=== PATIENT | female | born 1960 | race Caucasian/White ===

== ENCOUNTER 2020-01-08 08:59 | Outpatient (CLI) | payer OTHER, SELFPAY ==
--- NOTE | ~2020-01-08 | MM_ITS ---
EXAMINATION: MM screening [facility] BI w kaylyn HISTORY: Screening mammogram TECHNIQUE: Craniocaudal and mediolateral oblique 3-D tomosynthesis images were obtained and synthetic 2-D images were generated. CAD analysis was submitted and interpreted. COMPARISON: 01/02/2019, 12/26/2017, 10/03/1719 191 BREAST PARENCHYMAL COMPOSITION: There are scattered areas of fibroglandular density. FINDINGS: An asymmetry in the middle third of the left breast on the mediolateral oblique view has an appearance similar to prior mammograms, consistent with a benign finding. There is no evidence of chairez spicious mass, calcification, or architectural distortion to suggest malignancy in either breast. The re has been no suspicious interval change. IMPRESSION: 1. No mammographic evidence of malignancy. 2. Recommend routine screening mammography in one year. BI-RADS Category 2: Benign finding(s). Reviewed, dictated and finalized at location A.
== END 2020-01-08 09:00 | disposition home or self-care (01) ==
PROVIDERS: PCP Internal Medicine; Visit Provider Internal Medicine
DX: Z12.31 Encounter for screening mammogram for malignant neoplasm of breast (principal)
CPT/HCPCS: 77063; 77067

== ENCOUNTER 2020-04-15 09:44 | Outpatient (CLI) | payer OTHER, SELFPAY ==
--- NOTE | ~2020-04-15 | XR_ITS ---
XR chest 2V 04/15/2020 10:15 Indication: Cough and congestion. Fever. Procedure: 2 view chest Comparison: Comparison to multiple prior studies sequentially, with oldest reviewed study dated 04/13. Findings: There is patchy consolidation in the right midlung. There is left suprahilar infiltrates. H eart size upper normal. There are median sternotomy wires. No pleural effusion, edema or pneumothorax . Impression: 1: Focal consolidation right mid lung zone and left perihilar region, compatible with pneumonia. Reviewed, dictated and finalized at location B. ERPRESS SETTER Impression: 1: Focal consolidation right mid lung zone and left perihilar region, compatibl e with pneumonia.
[2020-04-15 10:13] LABS: Hematocrit 35.6 % (35.0-49.0); Hemoglobin 12.2 g/dL (12.0-15.0); Mean Corpuscular HGB Conc 34.3 g/dL (32.0-36.0); Mean Corpuscular Hemoglobin 33.5 pg (27.0-31.0); Mean Corpuscular Volume 97.8 fL (78.0-102.0); Mean Platelet Volume 10.2 fl (9.2-11.8); Platelet Count Result 90 K/mm3 (150-420); Red Blood Count 3.64 M/mm3 (4.20-5.40); Red Cell Distribution Width 13.6 % (11.6-14.4); White Blood Count 3.5 K/mm3 (4.8-10.8)
[2020-04-15 10:28] LABS: Influenza Control Valid (Valid)
[2020-04-15 11:26] LABS: Band Neutrophils Percent 1 % (0-6); Total Cells Counted 100
[2020-04-15 11:31] LABS: Eosinophils Absolute Manual 0.07 K/mm3 (0.02-0.5); Eosinophils Percent Manual 2 % (1-6); Lymphocytes Absolute Manual 0.56 K/mm3 (1.1-4.5); Lymphocytes Percent Manual 16 % (18-44); Monocytes Absolute Manual 0.17 K/mm3 (0.1-0.90); Monocytes Percent Manual 5 % (3-9); Neutrophils Absolute Manual 2.69 K/mm3 (1.7-7.2); Neutrophils Percent Manual 76 % (46-73)
[2020-04-15 11:32] LABS: Platelet Estimate Adequate (Adequate)
[2020-04-15 12:20] LABS: Alanine Aminotransferase 46 U/L (14-59); Albumin Level 3.3 g/dL (3.4-5.0); Alkaline Phosphatase 88 U/L (46-116); Anion Gap 9 mmol/L (8-16); Aspartate Amino Transferase 44 U/L (15-37); Bilirubin,Total 0.4 mg/dL (0.00-1.00); Blood Urea Nitrogen 10 mg/dL (7-18); Calcium 7.8 mg/dL (8.5-10.1); Carbon Dioxide 27 mmol/L (21-32); Chloride 90 mmol/L (98-108); Estimated Glomerular Filt Rate > 60; Glucose 120 mg/dL (70-99); Osmolality Calculated 262 mOsm/kg (285-295); Potassium 4.3 mmol/L (3.5-5.1); Sodium 126 mmol/L (136-145); Total Protein 5.9 g/dL (6.4-8.2)
== END 2020-04-15 09:45 | disposition home or self-care (01) ==
LOC: CHSLAB 09:47
PROVIDERS: PCP Internal Medicine; Visit Provider Internal Medicine
DX: R05 Cough (principal)
CPT/HCPCS: 71046; 80053; 85025; 87804

== ENCOUNTER 2020-04-25 09:40 | Outpatient (CLI) | payer OTHER, SELFPAY ==
--- NOTE | ~2020-04-25 | XR_ITS ---
XR chest 2V 04/25/2020 09:57 Indication: Pneumonia. Shortness of breath. Cough. Procedure: 2 view chest Comparison: Comparison to multiple prior studies sequentially, with oldest reviewed study dated 06/12. Findings: Mild cardiomegaly. There are median sternotomy wires. There is posterior basilar infiltrate s, best seen on the lateral view. No significant pleural effusion. No pneumothorax. Impression: 1: Posterior basilar infiltrates, atelectasis versus pneumonia. 2: Mild cardiomegaly. Reviewed, dictated and finalized at location A. MANAGER SPECIALIST Impression: 1: Posterior basilar infiltrates, atelectasis versus pneumonia. 2: Mild cardiomegaly.
== END 2020-04-25 09:41 | disposition home or self-care (01) ==
LOC: CHSIMG 09:42
PROVIDERS: PCP Internal Medicine; Visit Provider Internal Medicine
DX: J18.9 Pneumonia, unspecified organism (principal)
CPT/HCPCS: 71046

== ENCOUNTER 2020-05-12 12:05 | Outpatient (CLI) | payer OTHER, SELFPAY ==
--- NOTE | ~2020-05-12 | XR_ITS ---
EXAMINATION: XR chest 2V DATE: 05/12/2020 12:38 INDICATION: Cough and shortness of breath, pneumonia follow-up TECHNIQUE: PA and lateral views of the chest are obtained. COMPARISON: 04/25/2020 FINDINGS: Patchy bilateral airspace opacities persist but have improved. There is no pleural effusion or pneumothorax. Stable cardiomegaly is noted. There are changes of prior cardiac surgery. There is moderate thoracic spondylosis. IMPRESSION: 1. Persistent but improving bilateral airspace opacities, likely resolving pneumonia. 2. Stable cardiomegaly. Reviewed, dictated and finalized at location A. AGE STOKER IMPRESSION: 1. Persistent but improving bilateral airspace opacities, likely resolving pneu monia. 2. Stable cardiomegaly.
== END 2020-05-12 12:06 | disposition home or self-care (01) ==
LOC: CHSIMG 12:07
PROVIDERS: PCP Internal Medicine; Visit Provider Internal Medicine
DX: J18.9 Pneumonia, unspecified organism (principal)
CPT/HCPCS: 71046

== ENCOUNTER 2021-01-19 09:40 | Outpatient (CLI) | payer BC, SELFPAY | END 2021-01-19 09:41 | disposition home or self-care (01) | LOC: CHSCARD 09:44 | PROVIDERS: PCP Internal Medicine; Visit Provider Internal Medicine | DX: R06.00 Dyspnea, unspecified (principal) | CPT/HCPCS: 94060; 94726; 94729 ==

== ENCOUNTER 2021-02-10 12:08 | Outpatient (CLI) | payer BC, SELFPAY ==
--- NOTE | ~2021-02-10 | MM_ITS ---
EXAMINATION: MM screening [facility] BI w kaylyn HISTORY: Screening TECHNIQUE: Craniocaudal and mediolateral oblique 3-D tomosynthesis images were obtained and synthetic 2-D images were generated. CAD analysis was submitted and interpreted. COMPARISON: Comparison to multiple prior studies sequentially, with oldest reviewed study dated 10/02. BREAST PARENCHYMAL COMPOSITION: There are scattered areas of fibroglandular density. FINDINGS: There is no evidence of suspicious mass, calcification, or architectural distortion to sugg est malignancy in either breast. There has been no suspicious interval change. IMPRESSION: 1. No mammographic evidence of malignancy. 2. Recommend routine screening mammography in one year. BI-RADS Category 1: Negative Reviewed, dictated and finalized at location A.
== END 2021-02-10 12:09 | disposition home or self-care (01) ==
PROVIDERS: PCP Internal Medicine; Visit Provider Internal Medicine
DX: Z12.31 Encounter for screening mammogram for malignant neoplasm of breast (principal)
CPT/HCPCS: 77063; 77067

== ENCOUNTER 2021-05-29 16:14 | Outpatient (CLI) | payer BC, SELFPAY ==
--- NOTE | ~2021-05-29 | XR_ITS ---
EXAMINATION: XR chest 2V DATE: 05/29/2021 16:35 INDICATION: Cough. TECHNIQUE: Frontal and lateral views of the chest were obtained. COMPARISON: Chest 2 views 05/12/20 FINDINGS: The chest demonstrates clear lungs without pneumonia, pleural effusion, or pneumothorax. Th e heart size is normal. Median sternotomy wires are noted. IMPRESSION: 1. No acute cardiopulmonary disease. Reviewed, dictated and finalized at location A. ERY ATTENDANT
== END 2021-05-29 16:15 | disposition home or self-care (01) ==
LOC: CHSLAB 16:16
PROVIDERS: PCP Internal Medicine; Visit Provider Internal Medicine
DX: J44.1 Chronic obstructive pulmonary disease with (acute) exacerbation (principal)
CPT/HCPCS: 71046

== ENCOUNTER 2021-06-26 10:29 | Outpatient (CLI) | payer BC, SELFPAY ==
--- NOTE | ~2021-06-26 | XR_ITS ---
EXAMINATION: XR chest 2V DATE: 06/26/2021 10:53 INDICATION: Persistent cough after diagnosis of bronchitis 3 weeks ago. TECHNIQUE: Frontal and lateral views of the chest were obtained. COMPARISON: Chest 2 views 05/29/2021 FINDINGS: There is no pneumonia, pleural effusion, or pneumothorax. Cardiomegaly is noted. Median kevin rnotomy wires are noted. IMPRESSION: 1. Cardiomegaly. Reviewed, dictated and finalized at location A. ESSOR OF VIOLIN IMPRESSION: 1. Cardiomegaly.
== END 2021-06-26 10:30 | disposition home or self-care (01) ==
LOC: CHSIMG 10:30
PROVIDERS: PCP Internal Medicine; Visit Provider Internal Medicine
DX: R05.9 Cough, unspecified (principal)
CPT/HCPCS: 71046

== ENCOUNTER 2022-03-29 07:43 | Outpatient (CLI) | payer BC, SELFPAY ==
--- NOTE | ~2022-03-29 | MM_ITS ---
EXAMINATION: MM screening [facility] BI w kay[facility] HISTORY: Screening TECHNIQUE: Craniocaudal and mediolateral oblique 3-D tomosynthesis images were obtained and synthetic 2-D images were generated. CAD analysis was submitted and interpreted. COMPARISON: Comparison to multiple prior studies sequentially, with oldest reviewed study dated 07/21. BREAST PARENCHYMAL COMPOSITION: There are scattered areas of fibroglandular density. FINDINGS: There is no evidence of suspicious mass, calcification, or architectural distortion to sugg est malignancy in either breast. There has been no suspicious interval change. IMPRESSION: 1. No mammographic evidence of malignancy. 2. Recommend routine screening mammography in one year. BI-RADS Category 1: Negative Reviewed, dictated and finalized at location A. OLL ACCOUNTING SPECIALIST
== END 2022-03-29 07:44 | disposition home or self-care (01) ==
LOC: CHSIMG 07:46
PROVIDERS: PCP Internal Medicine; Visit Provider Internal Medicine
DX: Z12.31 Encounter for screening mammogram for malignant neoplasm of breast (principal)
CPT/HCPCS: 77063; 77067

== ENCOUNTER 2023-06-14 11:44 | Outpatient (CLI) | payer BC, SELFPAY ==
--- NOTE | ~2023-06-14 | MM_ITS ---
EXAMINATION: MM screening [facility] BI w kaylyn HISTORY: Screening TECHNIQUE: Craniocaudal and mediolateral oblique 3-D tomosynthesis images were obtained and synthetic 2-D images were generated. CAD analysis was submitted and interpreted. COMPARISON: Comparison to multiple prior studies sequentially, with oldest reviewed study dated 10/02. BREAST PARENCHYMAL COMPOSITION: Not dense: There are scattered areas of fibroglandular density. FINDINGS: There is no evidence of suspicious mass, calcification, or architectural distortion to sugg est malignancy in either breast. There has been no suspicious interval change. IMPRESSION: 1. No mammographic evidence of malignancy. 2. Recommend routine screening mammography in one year. BI-RADS Category 1: Reviewed, dictated and finalized at location A. ULATING DRYING SUPERVISOR
== END 2023-06-14 11:45 | disposition home or self-care (01) ==
LOC: CHSIMG 11:48
PROVIDERS: PCP Internal Medicine; Visit Provider Internal Medicine
DX: Z12.31 Encounter for screening mammogram for malignant neoplasm of breast (principal)
CPT/HCPCS: 77063; 77067

== ENCOUNTER 2024-07-02 12:07 | Outpatient (CLI) | payer BC, SELFPAY ==
--- NOTE | ~2024-07-02 | MM_ITS ---
EXAMINATION: MM screening [facility] BI w kaylyn HISTORY: Screening TECHNIQUE: Craniocaudal and mediolateral oblique 3-D tomosynthesis images were obtained and synthetic 2-D images were generated. CAD analysis was submitted and interpreted. COMPARISON: Comparison to multiple prior studies sequentially, with oldest reviewed study dated 01/02. BREAST PARENCHYMAL COMPOSITION: Not dense: There are scattered areas of fibroglandular density. FINDINGS: There is no evidence of suspicious mass, calcification, or architectural distortion to sugg est malignancy in either breast. There has been no suspicious interval change. IMPRESSION: 1. No mammographic evidence of malignancy. 2. Recommend routine screening mammography in one year. BI-RADS Category 1: Negative Reviewed, dictated and finalized at location B. CH COORDINATOR
--- OUTSIDE RECORDS SUMMARY | 2024-07-02 12:13 | XMS_ITS | Clinical Summary ---
Author Organization [facility] Address [address] [place] [address] Phone Care Team Providers Care Editor Newspaper Name Role Phone Xavi Kaur MD Primary Care Provider [phone] Allergies Active Allergy Reactions Criticality Noted Date Comments Amoxicillin Unknown 04/23/2022 Cephalexin Unknown 04/23/2022 Guaifenesin Unknown 04/23/2022 Torsemide Unknown 04/23/2022 Medications acyclovir (ZOVIRAX) 400 MG Tablet Take 400 mg by mouth 2 times daily. Active ALPRAZolam (XANAX) 0.25 MG Tablet Take 0.25 mg by mouth 3 times daily as needed. Active ARIPiprazole (ABILIFY) 2 MG Tablet Take 2 mg by mouth daily. Active cetirizine (ZyrTEC) 10 MG Tablet Take 10 mg by mouth daily. Active dilTIAZem (Cardizem CD) 240 MG CAPSULE SR 24 HR Take 240 mg by mouth daily. Active diphenhydrAMINE (Benadryl Allergy) 25 MG Capsule Take 25 mg by mouth every 6 hours as needed. Active fluticasone-carmen meterol (ADVAIR) 250-50 MCG/ACT AEROSOL POWDER, BREATH ACTIVATED take 1 Puff by inhalation in the morning and at bedtime. Active furosemide (LASIX) 40 MG Tablet Take 40 mg by mouth daily. Active ipratropium (ATROVENT) 0.06 % Solution 2 Sprays by Nasal route 4 times daily. Active Bimatoprost (Lumigan) 0.01 % Solution Place 1 Drop in affected eye(s) nightly. Active magnesium oxide (MAG-OX) 400 MG Tablet Take 400 mg by mouth daily. Active metoprolol Succinate (Toprol XL) 50 MG TABLET SR 24 HR Take 50 mg by mouth daily. Active nicotine (Nicotrol) 10 MG Inhaler take 1 Puff by inhalation as needed. Active potassium chloride (KLOR-CON) 20 MEQ Pack Take 20 mEq by mouth 2 times daily. Active Warfarin Sodium (COUMADIN PO) Take 8 mg by mouth daily. Active Multiple Vitamins-Minera ls (CENTRUM PO) Take 1 Tablet by mouth daily. Active Probiotic Product (PROBIOTIC DAILY PO) Take 1 Tablet by mouth every evening. Active Active Problems Problem Noted Date Diagnosed Date RSV (respiratory syncytial virus pneumonia) 04/12 Acute on chronic respiratory failure with hypoxia and hypercapnia 04/22/2022 Family History Medical History Relation Name Comments Cerebral Anuerysm Father Aneurysm Other Rheumatoid Arthritis Paternal Grandmother Stroke Paternal Grandmother Relation Name Status Comments Father Other Paternal Grandmother Social History Tobacco Use Types Packs/Day Years Used Date Smoking Tobacco: Every Day Cigarettes 1 40 Smokeless Tobacco: Never Tobacco Cessation:Ready to Q uit: Not Asked; Counseling Given: Not Answered Alcohol Use Standard Drinks/Week Comments Yes 0 (1 standard drink = 0.6 oz pur e alcohol) Comments Unknown Sex and Gender Information Value Date Recorded Sex Assigned at Not on file Legal Sex Female 8:39 PM ACID POLYMERIZATION OPERATOR Gender Identity Not on file Sexual Orientation Not on file Last Filed Vital Signs Vital Sign Reading Time Taken Comments Blood Pressure 125/85 04/26/2022 11:30 AM ACID POLYMERIZATION OPERATOR Pulse 107 04/26/2022 2:03 PM ACID POLYMERIZATION OPERATOR Temperature 37.7 C (99.8 F) 04/26/2022 11:30 AM ACID POLYMERIZATION OPERATOR Respiratory Rate 22 04/26/2022 11:3 0 AM ACID POLYMERIZATION OPERATOR Oxygen Saturation 93% 04/26/2022 2:03 PM ACID POLYMERIZATION OPERATOR Inhaled Oxygen Concentration - - Weight 90.6 kg (199 lb 12.8 oz) 04/23/2022 1:00 AM ACID POLYMERIZATION OPERATOR Height 172.7 cm (5' 8 ) 04/23/2022 1:00 AM ACID POLYMERIZATION OPERATOR Body Mass Index 30.38 04/23/2022 1:00 AM ACID POLYMERIZATION OPERATOR Plan of Treatment Health Maintenance Due Date Last Done Comments Hepatitis C Virus (HCV) Screening 1960 Mammogram 1960 Pap Smear 1981 Cervical Cancer Screening (CCS) 1990 HPV/Cotest 1990 Colonoscopy 2005 Colorectal Cancer Screening 2005 Cologuard 2010 Immunochemical Fecal Occult Blood 2010 Zoster Immunization (2 of 2) 05/20/2020 03/25/2020 Respiratory Syncytial Virus (RSV) Immunization (Adult) (1 - Risk 60-74 years 1-dose series) 2020 Influenza Immunization (#1) 2024 1106/2021, 02/16/2021, 02/27/2019, Additional history exists SARS-COV-2 Immunization ( - season) 2024 02/23/2021, 07/06/2020, 06/15/2020 Pneumococcal Immunization (50+ years) (3 of 3 - PCV20 or PCV21) 03/20/2024 03/20/2019, 11/17/2014, 02/03/2014 DTaP/Tdap/Td Immunization Discontinued 06/04/2012 TdaP Immunization Completed 06/04/2012 Pneumococcal Immunization Combined Discontinued 03/20/2019, 11/17/2014, 02/03/2014 Lung Cancer Screening Discontinued 04/22/2022 Hepatitis B Immunization Aged Out No longer eligible based on patient's age to complete this topic Meningococcal Immunization (ACWY) Aged Out No longer eligible based on patient's age to complete this topic Rotavirus Immunization Aged Out No lo nger eligible based on patient's age to complete this topic Advance Directives * Full Code (Latest Code Status on File) Date Activated Date Inactivated Comments 04/23/2022 12:59 AM 04/26/2022 5:21 PM CPR-Full Treatment: FULL ARREST: Attempt Resuscitation/CPR wit intubation and mechanical ventilation. PRE-ARREST: Use entire range of life support measures to stabilize the patient. Care Teams Editor Newspaper Relationship Specialty Start Date End Date Xavi Kaur MD [address] [place] [address] PCP - General Internal Medicine 04/23/22
--- OUTSIDE RECORDS SUMMARY | 2024-07-02 12:13 | XMS_ITS ---
Author Organization [facility] [employer] Address [address] [facility] [address] [place] [address] Care Team Providers Care Logistics System Engineer Name Role Phone Vincent DELANEY, Xavi Primary Care Provider UnavailNick Barnett Unavailable [phone] REASON FOR VISIT Refill Medications Medication SIG (Take, Route, Fr equency, Duration) Notes Start Date End Date Status ALPRAZolam 0.25 MG 1 tablet Orally once a day for 30 days 04/23/2024 Active Social History Sex Assigned At : Social History Observation Description Sex Assigned At Female Encounters Encounter Location Date Provider Diagnosis [facility] [employer] [facility] [address] [address] 04/23/2024 Nick Magana Generalized anxiety disorder F41.1 Assessments Encounter Date Diagnosis (ICD Code) Assessment Notes Treatment Notes Treatment Clinical Notes Section Notes 04/23/2024 Generalized anxiety disorder (ICD-10 - F41.1) Plan Of Treatment Medication Medication Name Sig Start Date Stop Date Notes ALPRAZolam 0.25 MG 1 tablet Orally once a day for 30 days 04/23/2024 Next Appt Details Provider Name:Celina Danielson , 07/24/2024 01:00:00 PM, [address], [address], [address], Provider Name:Nick Magana , 07/24/2024 02:15:00 PM, [address], [facility] [address], [place], [address], Provider Name:Celina Danielson , 08/21/2024 01:00:00 PM, [address], [facility] [address], [place], [address], Provider Name:Celina Danielson , 09/18/2024 01:00:00 PM, [address], [facility] [address], [place], [address], Progress Notes * BIPIN ADAMDOB:1960 (63 yo F)Acc No.[id number]:04/23/2024 Patient: BIPIN GRIFFITH :1960 A ge:63 Y S ex:Female Address:[address] [place] [address], [address] * Refills Start ALPRAZolam Tablet, 0.25 MG, Orally, 30 Tablet, 1 tablet, once a day, 30 days, Refills=0 Subjective: * Chief Complaints: * R efill * Medical History: * Surgical History: * Hospitalization/Major Diagno stic Procedure: * Medications: Objective: * Vitals: * Physical Examination: Assessment: * Assessment: 1. G eneralized anxiety disorder - F41.1 (Primary) Plan: * Treatment: * Procedure Codes: * true * Date: Generated for Dori rich/Lavonne/Bashir on: 0 07/02/2024 12:13 PM STACK YIELD ENGINEER
--- OUTSIDE RECORDS SUMMARY | 2024-07-02 12:14 | XMS_ITS | Patient Health Record ---
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 get together for Sheri. Therapist actively listened to client and utilized a cognitive behavioral intervention to help client explore strategies to minimize her hurt and anxious feelings. 06/19/2024 Other Client continued where she left off at last session 04/03/2024. She focused on the scam and what continued to happen since then. Client reports it has been exhausting. She states he friend bu since the 'friend' was part of instigating the scam, she knows she would never what this friend in her life again. She reports work is going okay. She states she stays busy when home, socializes with friends and family. Therapist actively listened to client and provided a supportive intervention by helping client maintain her current level of functioning through the showing of acceptance. PHQ=0 none OLGA=1 minimal Plan Of Treatment Next Appt Details Provider Name:Celina Danielson , 07/24/2024 01:00:00 PM, [facility], [address], [address], Provider Name:Nick Magana , 07/24/2024 02:15:00 PM, [facility], [address], [address], Provider Name:Celina Danielson , 08/21/2024 01:00:00 PM, [facility], [address], [address], Provider Name:Celina Danielson , 09/18/2024 01:00:00 PM, [facility], [address], [address], Insurance Providers Payer Name Payer Address Payer Phone Subscriber Number Group Number Insured Name Patient Relationship to Insured Coverage Start Date Coverage End Date [facility] [address] [place] [address] [id number] BIPIN ADAM Self - patient is the insured Medical (General) History Medical History History ICD Code Problems: Depressed bipolar I disorder i n full remission Generalized anxiety disorder Nicotine dependence , Surgical History Surgery Date(Month/Year) Heart surgery 07/27/1986 Cataract surgery (94104) 07/28/1986 Hospitalization History Reason Date(Month/Year) PNEUMONIA 04/01/24
--- OUTSIDE RECORDS SUMMARY | 2024-07-02 12:14 | XMS_ITS ---
Author Organization [facility] [employer] Address [address] [facility] [address] [place] [address] Care Team Providers Care Ticket Printer Name Role Phone Vincent DELANEY, Xavi Primary Care Provider UnavailNick Barnett Unavailable [phone] Celina Danielson Unavailable [phone] REASON FOR VISIT Confirmed, bipolar in remission, anxiety Medications Medication SIG (Take, Route, Frequency, Duration) Notes Start Date End Date Status Tiotropium [place] Monohydrate 18 MCG INHALE THE CONTENTS OF 1 CAPS USING 2 INHALATIONS BY INHALATION ROUTE ONCE DAILY VIA HANDIHALER Inhalation for 30 Days Not-Takin g Tiotropium [place] Monohydrate 18 MCG INHALE THE CONTENTS OF 1 CAPS USING 2 INHALATIONS BY INHALATION ROUTE ONCE DAILY VIA HANDIHALER Inhalation for 30 Days Not-Takin g Brimonidine Tartrate-Timolol 0.2-0.5 % INSTILL 1 DROP INTO EACH EYE TWICE DAILY Ophthalmic for 20 Days Not-Takin g Brimonidine Tartrate-Timolol 0.2-0.5 % INSTILL 1 DROP INTO EACH EYE TWICE DAILY Ophthalmic for 20 Days Not-Takin g ALPRAZolam 0.25 MG 1 tablet every day a nd half tablet once a day as needed Oral see sign for 90 days 05/01/2024 Active ARIPiprazole 2 MG 1 tablet Oral Once a day for 90 days Active ALPRAZolam 0.25 MG 1 tablet Orally once a day for 30 days 04/23/2024 Active Social History Tobacco Use: Social History Observation [...] nicotine products and stop smoking hotline given Encounters En[facility] [address] [place] [address] 06/19/2024 Celina Erum Bipolar disorder, in full remission, most recent episode depressed F31.76 and Generalized anxiety disorder F41.1 Assessments Encounter Date Diagnosis (ICD Code) Assessment Notes Treatment Notes Treatment Clinical Notes Section Notes 06/19/2024 Bipolar disorder, in full remission, most recent episode depressed (ICD-10 - F31.76) 06/19/2024 Generalized anxiety disorder (ICD-10 - F41.1) 06/19/2024 Other Client continued where she left [...] minimal Plan Of Treatment Next Appt Details Follow Up: 4 Weeks, Reason: therapy follow up Provider Name:Celina Danielson , 07/24/2024 01:00:00 PM, [address], [address], [address], Provider Name:Nick Magana , 07/24/2024 02:15:00 PM, [address], [facility] [address], [address], Provider Name:Celina Danielson , 08/21/2024 01:00:00 PM, [address], [facility] [address], [place], [address], Provider Name:Celina Danielson , 09/18/2024 01:00:00 PM, [address], [facility] [address], [place], [address], Progress Notes * BIPIN ADAMDOB:1960 (63 yo F)Acc No.[id number]:06/19/2024 Patient: BIPIN GRIFFITH Provider: Ata DANIELSON LCSW :1960 A ge:63 Y S ex:Female Date:06/19/2024 Address:[address] [place], [place] [id number] Pcp:Xavi Kaur MD Data: * Time Tracker: * Date Start Time End Time Duration User Type Captured By Mode Notes 06/19/2024 02:00 PM 02:53 PM 00:53:00 Therapist Celina Danielson anual * Chief Complaints: * 1 . Confirmed. 2. Bipolar in remission. 3. Anxiety. * HPI: F unctional Status: Client is here today for psychotherapy to treat bipolar d/o in remission and anxiety issues. Based on our session, I think the patient is making moderate progress. At this time I do not recommend changes to the treatment plan. I do not think the patient poses significant risk of harm to self or others at this time. Discussed continued treatment with patient. D epression screening: PHQ-9 L ittle interest or pleasure in doing things N ot at all, F eeling down, depressed, or hopeless N ot at all, T rouble falling or staying asleep, or sleeping too much N ot at all, F eeling tired or having little energy N ot at all, P oor appetite or overeating N ot at all, F eeling bad about yourself or that you are a failure, or have let yourself or your family down N ot at all, T rouble concentrating on things, such as reading the newspaper or watching television N ot at all, M oving or speaking so slowly that other people could have noticed; or the opposite, being so fidgety or restless that you have been moving around a lot more than usual N ot at all, T houghts that you would be better off or of hurting yourself in some way N ot at all, T otal Score 0 , I nterpretation M inimal Depression. I ntervention D epression Screening Findings N egative, S uicide Risk Assessment Performed 0 06/19/2024 client denies plan or intent to harm herself. D epression Screening: OLGA-7 (2018 Edition) F eeling nervous, anxious, or on edge?Several days, N ot being able to stop or control worrying N ot at all, W orrying too much about different things N ot at all, T rouble relaxing N ot at all, B eing so restless that it is hard to sit still N ot at all, B ecoming easily annoyed or irritable?Not at all, F eeling afraid as if something awful might happen N ot at all, T otal OLGA-7 Score 1 , I f you checked any problems, how difficult have they made it for you to do your work, take care of things at home, or get along with other people? N ot difficult at all, I nterpretation of Total ( 0 to 4) No Anxiety. * Behavioral History: P ast psychiatric Hospitalization:Yes. H istory of suicidal attempt?:No. * Family History: U nspecified Relation: Depressive disorder . M other: Bipolar disorderParkinson's disease.?Son: Bipolar disorder . * Social History: T obacco Use: T obacco Control (Standard) T obacco use: C urrent every day smoker, A dditional Findings: Tobacco user M oderate cigarette smoker (10-19 cigs/day). D o not smoke. Nicotine and other chemicals in cigarettes and cigars can cause lung damage. Ask your healthcare provider for information if you currently smoke and need help to quit. E-cigarettes or smokeless tobacco still contain nicotine. Talk to your healthcare provider before you use these products. Education on decrease to stopping nicotine products and stop smoking hotline given. * Medications: T aking ALPRAZolam 0.25 MG Tablet 1 tablet Orally once a day , Taking ARIPiprazole 2 MG Tablet 1 tablet Oral Once a day , Taking ALPRAZolam 0.25 MG Tablet 1 tablet every day and half tablet once a day as needed Oral see sign , Not-Taking Brimonidine Tartrate-Timolol 0.2-0.5 % Solution INSTILL 1 DROP INTO EACH EYE TWICE DAILY Ophthalmic , Not-Taking Brimonidine Tartrate-Timolol 0.2-0.5 % Solution INSTILL 1 DROP INTO EACH EYE TWICE DAILY Ophthalmic , Not-Taking Tiotropium [place] Monohydrate 18 MCG Capsule INHALE THE CONTENTS OF 1 CAPS USING 2 INHALATIONS BY INHALATION ROUTE ONCE DAILY VIA HANDIHALER Inhalation , Not-Taking Tiotropium [place] Monohydrate 18 MCG Capsule INHALE THE CONTENTS OF 1 CAPS USING 2 INHALATIONS BY INHALATION ROUTE ONCE DAILY VIA HANDIHALER Inhalation , Medication List reviewed and reconciled with the patient * Examination: P sychiatry: C silver is well groomed and oriented X 3. Assessment: * Assessment: 1. B ipolar disorder, in full remission, most recent episode depressed - F31.76 (Primary) ? 2 . G eneralized anxiety disorder - F41.1 Plan: * Treatment: * Procedure Codes: 9 0837 PSYCHOTHERAPY W/PATIENT 60 MINUTES, 94700 BEHAV ASSMT W/SCORE & DOCD/STAND INSTRUMENT * Follow Up: 4 Weeks (Reason: therapy follow up) * Billing Information: * Visit Code: * Procedure Codes: 35140 PSYCHOTHERAPY W/PATIENT 60 MINUTES. 18296 BEHAV ASSMT W/SCORE & DOCD/STAND INSTRUMENT. * SUPERVISOR Sign off status: Completed Signatures: No Ad Hoc Signature Added true * Provider: Ata DANIELSON LCSW Date: 0 06/19/2024 Generated for Dori rich/Lavonne/Bashir on: 0 07/02/2024 12:14 PM POND SUPERVISOR History and Physical Notes * HPI (History of Present Illness) Category Sub-Category Detail Notes Category Not es Depression screening PHQ-9 Little inte rest or pleasure in doing things: Not at all Feeling down, depressed, or hopeless: No t at all Trouble falling or staying asleep, or sl eeping too much: Not at all Feeling tired or having little energy: N ot at all Poor appetite or overeating: Not at all Feeling bad about yourself o r that you are a failure, or have let yourself or your family down: Not at all Trouble concentrating on thi ngs, such as reading the newspaper or watching television: Not at all Moving or speaking so slowly that other people could have noticed; or the opposite, being so fidgety or restless that you have been moving around a lot more than usual: Not at all Thoughts that you would be b calin off or of hurting yourself in some way: Not at all Total Score: 0 Interpretation: Minimal Depression Intervention Depression Screening Findings: N egative Suicide Risk Assessment Perf ormed: 06/19/2024 client denies plan or intent to harm herself Depression Screening OLGA-7 (2018 Edition) Feelin g nervous, anxious, or on edge: Several days Not being able to stop or control worryi ng: Not at all Worrying too much about different things : Not at all Trouble relaxing: Not at all Being so restless that it is hard to sit still: Not at all Becoming easily annoyed or irritable: No t at all Feeling afraid as if something awful claudette ht happen: Not at all Total OLGA-7 Score: 1 If you checked any problems, how difficult have they made it for you to do your work, take care of things at home, or get along with other people?: Not difficult at all Interpretation of Total: (0 to 4) No Anx iety Examination Category Sub-Category Detail Notes Category Not es Psychiatry Client is well groomed and oriented X 3
--- OUTSIDE RECORDS SUMMARY | 2024-07-02 12:14 | XMS_ITS | Clinical Summary ---
Author Organization [facility] Address [address] [place] [address] Care Team Providers Care Independent Sales Representative Name Role Phone Xavi Kaur MD Primary Care Provider [phone] Horacio Martinez PA-C Unavailable Kyle Brown MD Unavailable Unavailable Bertha Sanchez APRN [employer]-C Unavailable [phone] Allergies Active Allergy Reactions Criticality Noted Date Comments Amoxicillin GI Upset 04/19/2016 Cephalexin Unknown 04/19/2016 Guaifenesin Unknown 04/19/2016 Torsemide Hives 04/19/2016 Medications DAILY MULTIPLE VITAMINS Tab Take 1 tablet by mouth daily. 3 Active furosemide 40 MG tablet Take 1 tablet (40 mg total) by mouth daily. 4 Active ALPRAZolam 0.25 MG tablet Take 0.5 tablets (0.125 mg total) by mouth 2 (two) times daily as needed. 0 6 Active potassium chloride 20 MEQ tablet Take 1 tablet (20 mEq total) by mouth daily. 5 6 Active magnesium oxide 400 MG tablet Take 1 tablet (400 mg total) by mouth 2 (two) times daily. 2 tablets 2 times a day Active acyclovir 400 MG tablet Take 1 tablet (400 mg total) by mouth nightly. Active Probiotic Product (PROBIOTIC ADVANCED OR) Take 1 tablet by mouth daily. Active cetirizine 10 MG tablet Take 1 tablet (10 mg total) by mouth daily. Active LUMIGAN 0.01 % Solution Place 1 drop into both eyes daily. 0 Active COMBIGAN 0.2-0.5 % ophthalmic solution Place 1 drop into both eyes every 12 (twelve) hours. 0 Active fiber Powder Take 5 g by mouth as needed. Active fluticasone-salme terol 250-50 MCG/DOSE inhaler Inhale 1 puff into the lungs 2 (two) times daily. 60 each 1 Active albuterol sulfate HFA 108 (90 Base) MCG/ACT inhaler Inhale 2 puffs into the lungs every 4 (four) hours as needed for Shortness of breath or Wheezing. 3 Active furosemide (LASIX) 20 MG tablet Take 1 tablet (20 mg total) by mouth nightly at bedtime. Active warfarin (COUMADIN) 4 MG tablet Take 2 tablets (8 mg total) by mouth daily. 3 Active warfarin (COUMADIN) 1 MG tablet Take 0.5 tablets (0.5 mg total) by mouth daily. 3 times per week 3 Active dilTIAZem CD (CARDIZEM CD) 240 MG 24 hr capsule Take 1 capsule (240 mg total) by mouth daily. 90 capsule 3 4 Active metoprolol succinate ER (TOPROL-XL) 50 MG 24 hr tabletIndications :Permanent atrial fibrillation ([facility]) Take 1 tablet (50 mg total) by mouth daily. 90 tablet 3 4 Active warfarin (COUMADIN) 1 MG tablet Take 1 tablet (1 mg total) by mouth daily. 3-4 times per week Active ipratropium (ATROVENT) 0.06 % nasal spray 2 sprays by Nasal route 2 (two) times daily. 4 Active tiotropium (SPIRIVA RESPIMAT) 2.5 MCG/ACT inhaler (SPIRIVA RESPIMAT) Inhale 1 puff into the lungs daily. Please provide assembled. 4 Active Active Problems Problem Noted Date Diagnosed Date COPD with acute exacerbation ([facility]) 1 06/07/2023 COPD exacerbation ([facility]) 07/08/2022 Acute respiratory failure with hypoxia ([facility]) 08/04/2020 Encounter for monitoring dofetilide therapy 02/10 Tobacco abuse 02/19/2018 skilled nursing current use of anticoagulant 6 Permanent atrial fibrillation Encounters Date Type Department Care Team Description 04/06/2024 3:49 PM PATIENT SAFETY COORDINATOR - 04/07/2024 12:50 PM PATIENT SAFETY COORDINATOR [facility] [place] [facility] [address] [place] [address] Ines Carreno MD Ishmael, Timothy L, MD Shortness Of Breath Discharge Disposition: Home or Self Care (Routine Discharge) 04/06/2024 Travel from Last 3 Months Family History Medical History Relation Comments atrial fibrillation Brother 1 cerebral bleed Father cause of oseoporisis Maternal Grandmother Aneurysm Other Rheumatoid Arthritis Paternal Grandmother Stroke Paternal Grandmother Relation Status Comments Brother 1 Alive alive and well Brother 2 Alive Brother 3 Alive Father (Age 69) Maternal Grandfather Maternal Grandmother Mother Alive alive and well Other Other Negative for CAD . Positive for aneurysm Paternal Grandfather Paternal Grandmother Sister 1 Alive Sister 2 Alive Social History Tobacco Use Types Packs/Day Years Used Date Smoking Tobacco: Every Day Cigarettes 1 40 Smokeless Tobacco: Never Tobacco Cessation:Ready to Q uit: No; Counseling Given: Yes Alcohol Use Standard Drinks/Week Comments Yes 1.7 (1 standard drink = 0.6 oz p ure alcohol) Socially [facility] [employer] Answer Date Recorded In the past 12 months has e [place], gas, oil, or water [employer] threatened to shut off services in your home? No 04/06/2024 Humiliation, Afraid, Rape, and Kick questionnair e Answer Date Recorded Within the last year, have y ou been afraid of your partner or ex-partner? No 04/06/2024 Within the last year, have y ou been humiliated or emotionally abused in other ways by your partner or ex-partner? No Within the last year, have y ou been kicked, hit, slapped, or otherwise physically hurt by your partner or ex-partner? No 04/06/2024 Within the last year, have y ou been raped or forced to have any kind of sexual activity by your partner or ex-partner? No 04/06/2024 Overall Financial Resource Strain (CARDIA) Answe r Date Recorded How hard is it for you to pa y for the very basics like food, housing, medical care, and heating? Very hard 04/06/2024 Hunger Vital Sign Answer Date Recorded Within the past 12 months, y ou worried that your food would run out before you got the money to buy more. Never true 04/06/20 24 Within the past 12 months, t he food you bought just didn't last and you didn't have money to get more. Never true 04/06/2024 PRAPARE - Transportation Answer Date Re corded In the past 12 months, has l ack of transportation kept you from medical appointments or from getting medications? No 03/14 In the past 12 months, has l ack of transportation kept you from meetings, work, or from getting things needed for daily living? No 04/06/2024 Housing Stability Vital Sign Answer Igor e Recorded In the last 12 months, was t here a time when you were not able to pay the mortgage or rent on time? No 07/08/2022 In the last 12 months, how many places have you lived? 1 07/08/2022 In the last 12 months, was t here a time when you did not have a steady place to sleep or slept in a usp (including now)? No 07/08/2022 Housing Stability Vital Sign Answer Igor e Recorded In the last 12 months, was t here a time when you were not able to pay the mortgage or rent on time? No 04/06/2024 In the past 12 months, how m any times have you moved where you were living? 1 04/06/2024 At any time in the past 12 m [facility], were you homeless or living in a usp (including now)? No 04/06/2024 Comments No Sex and Gender Information Value Date Recorded Sex Assigned at Not on file Legal Sex Female 10:45 PM CDT Gender Identity Not on file Sexual Orientation Not on file Occupation Industry Job Start Date Job End Date [employer] Not on file Not on file Not on file Last Filed Vital Signs Vital Sign Reading Time Taken Comments Blood Pressure 112/66 04/07/2024 12:25 PM PATIENT SAFETY COORDINATOR Pulse 118 04/07/2024 12:25 PM PATIENT SAFETY COORDINATOR Temperature 36.9 C (98.4 F) 04/07/2024 10:21 AM PATIENT SAFETY COORDINATOR Respiratory Rate 20 04/07/2024 12:25 PM PATIENT SAFETY COORDINATOR Oxygen Saturation 92% 04/07/2024 7:32 AM PATIENT SAFETY COORDINATOR Inhaled Oxygen Concentration - - Weight 88.6 kg (195 lb 6.4 oz) 04/07/2024 4:00 A M PATIENT SAFETY COORDINATOR Height 172.7 cm (5' 8 ) 04/06/2024 4:00 PM PATIENT SAFETY COORDINATOR Body Mass Index 29.71 04/06/2024 4:00 PM PATIENT SAFETY COORDINATOR Plan of Treatment Upcoming Encounters Date Type Department Care Team (Late st Contact Info) Description 08/19/2024 1:00 PM CDT Office Visit [facility] [place] [phone] Antoine Topete MD [address] [place] [address] Health Maintenance Due Date Last Done Comments Cervical Cancer Screening Pa p Smear (Age 30 to 64) Every 3 Years 1960 Colorectal Cancer Screening Colonoscopy (10 Years) 1960 Annual Physical 09/25/1963 Hepatitis C 1978 DTaP, Tdap and Td Vaccines ( 1 - Tdap) 09/25/1979 Cervical Cancer Screening Pa p with HPV Testing (Age 30 to 64) Every 5 Years 1990 Cervical Cancer Screening with HPV 1990 Mammogram Screening 2000 Lung Cancer Screening 2010 Zoster Vaccines (1 of 2) 2010 Pneumococcal Vaccine: Pediat rics (0 to 5 Years) and At-Risk Patients (6 to 64 Years) (2 of 2 - PPSV23 or PCV20) 01/12/2015 11/17/2014 RSV Immunization or 60+ Years (1 - Risk 60-74 years 1-dose series) 2020 COVID-19 Vaccine (2023-2 5 season) 2024 Influenza Adult (#1) 2024 Meningococcal B Vaccine Aged Out No l onger eligible based on patient's age to complete this topic Meningococcal Vaccine Aged Out No kishan devante eligible based on patient's age to complete this topic RSV Immunizations Under 20 Months Aged Out No longer eligible based on patient's age to complete this topic Procedures Procedure Name Priority Date/Time Associated Diagnosis Comments PROTHROMBIN TIME, VENOUS Routine 04/07/2024 4:54 AM PATIENT SAFETY COORDINATOR BASIC METABOLIC PANEL Routine 04/07/2024 4:54 AM PATIENT SAFETY COORDINATOR CBC W/DIFF AUTOMATED STAT 04/07/2024 4:54 AM PATIENT SAFETY COORDINATOR CRITICAL CARE Routine 04/06/2024 5:55 PM PATIENT SAFETY COORDINATOR XR CHEST PORTABLE STAT 04/06/2024 4:4 2 PM PATIENT SAFETY COORDINATOR CULTURE, BACTERIA, BLOOD STAT 04/06/2024 4:29 PM PATIENT SAFETY COORDINATOR PRO-BRAIN NATRIURETIC PEPTIDE STAT 04/06/2024 4:22 PM PATIENT SAFETY COORDINATOR LACTIC ACID W REFLEX (SEPSIS) STAT 04/06/2024 4:22 PM PATIENT SAFETY COORDINATOR MAGNESIUM STAT 04/06/2024 4:22 PM PATIENT SAFETY COORDINATOR TROPONIN, QUANT STAT 04/06/2024 4:22 PM PATIENT SAFETY COORDINATOR PROTHROMBIN TIME, VENOUS STAT 04/06/2024 4:22 PM PATIENT SAFETY COORDINATOR COMPREHENSIVE METABOLIC PANEL STAT 04/06/2024 4:22 PM PATIENT SAFETY COORDINATOR CBC W/DIFF AUTOMATED STAT 04/06/2024 4:22 PM PATIENT SAFETY COORDINATOR INFLUENZA A & B STAT 04/06/2024 4:10 PM PATIENT SAFETY COORDINATOR CORONAVIRUS (COVID-19) ANTIGEN STAT 04/06/2024 4:10 PM PATIENT SAFETY COORDINATOR ECG 12-LEAD Routine 04/06/2024 3:57 PM PATIENT SAFETY COORDINATOR from Last 3 Months Results * (ABNORMAL) PROTIME/INR, VENOUS (04/07/2024 4:54 AM PATIENT SAFETY COORDINATOR) Only the most recent of2 resultswithin the time period is included. PROTIME 39.0(H) 9.4 - 12.5 SEC 04/07/2024 5:51 AM [facility] INR 3.4(H) 0.8 - 1.0 04/07/2024 5:51 AM [facility] 04/07/2024 4:54 AM PATIENT SAFETY COORDINATOR us Ines Carreno MD LABORATORY Final Resul t [facility] [address] [email or web address] [address], * (ABNORMAL) BASIC METABOLIC PANEL (04/07/2024 4:54 AM PATIENT SAFETY COORDINATOR) SODIUM S/P/B 135(L) 136 - 145 MMOL/L 04/07/2024 5:58 AM [facility] POTASSIUM S/P/B 4.7 3.5 - 5.1 MMOL/L 04/07/2024 5:58 AM [facility] CHLORIDE S/P/B 96(L) 98 - 107 MMOL/L 04/07/2024 5:58 AM [facility] CO2 34.1(H) 21.0 - 32.0 MMOL/L 04/07/2024 5:58 AM [facility] GLUCOSE 172(H) 70 - 99 MG/DL 04/07/2024 5:58 AM [facility] Comment: FASTING GLUCOSE 100 TO 125 MG/DL IS CONSISTENT WITH IMPAIRED FASTING GLUCOSE. FASTING GLUCOSE >125 MG/DL IS CONSISTENT WITH DIABETES. RANDOM GLUCOSE >200 MG/DL WITH HYPERGLYCEMIC SYMPTOMS IS CONSISTENT WITH DIABETES. PER ADA GUIDELINES BUN 17 6 - 24 MG/DL 04/07/2024 5:58 AM [facility] CREATININE S/P/B 0.59 0.55 - 1.02 MG/DL 04/07/2024 5:58 AM [facility] CALCIUM S/P/B 8.9 8.4 - 10.5 MG/DL 04/07/2024 5:58 AM PATIENT SAFETY COORDINATOR [facility] ANION GAP 4.9(L) 5.0 - 15.0 MMOL/L 04/07/2024 5:58 AM [facility] OSMOLALITY (CALC) 286 MOSM/KG 024 5:58 AM [facility] Comment:REFERENCE RANGE NOT ESTABLISHED GFR ESTIMATE >90 >89 ML/MIN/1. 73 M2 04/07/2024 5:58 AM PATIENT SAFETY COORDINATOR [facility] GFR NOTES GFR REFERENCE S: 04/07/2024 5:58 AM [facility] Comment: THE ESTIMATED GFR IS CALCULATED USING THE 2020 CKD-EPI EQUATION. THE FOLLOWING CATEGORIES FOR GRADING RENAL FUNCTION ARE RECOMMENDED BY THE INTERNATIONAL SOCIETY OF NEPHROLOGY (KDIGO 2012 CLINICAL PRACTICE GUIDELINE). G1,NORMAL OR HIGH: >89 ml/min/1.73 m2 G2,MILDLY DECREASED: 60-89 ml/min/1.73 m2 G3A,MILDLY TO MODERATELY DECREASED: 45-59 ml/min/1.73 m2 G3B,MODERATELY TO SEVERELY DECREASED: 30-44 ml/min/1.73 m2 G4,SEVERELY DECREASED: 15-29 ml/min/1.73 m2 G5,KIDNEY FAILURE: <15 ml/min/1.73 m2 04/07/2024 4:54 AM PATIENT SAFETY COORDINATOR Ines Carreno MD LABORATORY Final Resul t [facility] [address] [place] [address], * (ABNORMAL) CBC W/DIFF AUTOMATED (04/07/2024 4:54 AM PATIENT SAFETY COORDINATOR) Only the most recent of2 resultswithin the time period is included. WBC 7.29 4.00 - 10.80 x10'3/uL 04/07/2024 5:43 AM PATIENT SAFETY COORDINATOR [facility] RBC 4.86 4.10 - 5.40 x10'6/uL 04/07/2024 5:43 AM PATIENT SAFETY COORDINATOR [facility] HGB 16.3(H) 12.0 - 16.0 G/DL 04/07/2024 5:43 AM [facility] HCT 50.8(H) 36.0 - 47.0 % 04/07/2024 5:43 AM [facility] MCV 104.5(H) 78.0 - 100.0 FL 04/07/2024 5:43 AM [facility] MCH 33.5(H) 27.0 - 31.0 PG 04/07/2024 5:43 AM [facility] MCHC 32.1(L) 33.0 - 36.0 G/DL 04/07/2024 5:43 AM [facility] RDW 14.1 11.5 - 14.5 % 04/07/2024 5:43 AM [facility] PLT 139(L) 150 - 350 x10'3/uL 04/07/2024 5:43 AM [facility] MPV 9.3 7.4 - 10.4 FL 04/07/2024 5:43 AM [facility] CBC COMMENT NORMAL REFERENCE RANGE NOT ESTABLISHED FOR THE PROPORTIONAL LEUKOCYTE DIFFERENTIAL. 04/07/2024 5:43 AM [facility] NEUTROPHILS % 92.2 % 04/07/2024 5:43 AM [facility] LYMPHOCYTES % 6.4 % 04/07/2024 5:43 AM [facility] MONOCYTES % 0.8 % 04/07/2024 5:43 AM [facility] EOSINOPHILS % 0.1 % 04/07/2024 5:43 AM [facility] BASOPHILS % 0.1 % 04/07/2024 5:43 AM [facility] IMMATURE GRANS % 0.4 % 04/07/20 5:43 AM [facility] NRBC % 0.0 % 04/07/2024 5:43 AM [facility] ABS. NEUTROPHILS 6.71 1.60 - 8.30 x10'3/uL 04/07/2024 5:43 AM [facility] ABS. LYMPHOCYTES 0.47(L) 0.80 - 4.70 x10'3/uL 04/07/2024 5:43 AM PATIENT SAFETY COORDINATOR [facility] ABS. MONOCYTES 0.06 0.00 - 1.50 x10'3/uL 04/07/2024 5:43 AM PATIENT SAFETY COORDINATOR [facility] ABS. EOSINOPHILS 0.01 0.00 - 0.40 x10'3/uL 04/07/2024 5:43 AM PATIENT SAFETY COORDINATOR [facility] ABS. BASOPHILS 0.01 0.00 - 0.20 x10'3/uL 04/07/2024 5:43 AM PATIENT SAFETY COORDINATOR [facility] ABS. IMMATURE GRANULOCYTES 0.03 0.00 - 0.03 x10'3/uL 04/07/2024 5:43 AM PATIENT SAFETY COORDINATOR [facility] ABS. NUCLEATED RBC'S 0.00 0.00 - 0.01 x10'3/uL 04/07/2024 5:43 AM PATIENT SAFETY COORDINATOR [facility] 04/07/2024 4:54 AM PATIENT SAFETY COORDINATOR us Ines Carreno MD LABORATORY Final Resul t [facility] [address] [place] [address], * Critical Care (04/06/2024 5:55 PM PATIENT SAFETY COORDINATOR) Narrative Ines Carreno MD - 04/06/2024 5:55 PM PATIENT SAFETY COORDINATOR Ines Carreno MD 04/06/2024 6:51 PM Critical Care Performed by: Ines Carreno MD Authorized by: Ines Carreno MD Critical care provider statement: Critical care time (minutes): 35 Critical care time was exclusive of: Separately billable procedures and treating other patients Critical care was necessary to treat or prevent imminent or life-threatening deterioration of the following conditions: Respiratory failure Critical care was time spent personally by me on the following activities: Blood draw for specimens, development of treatment plan with patient or surrogate, discussions with primary provider, evaluation of patient's response to treatment, examination of patient, obtaining history from patient or surrogate, review of old charts, re-evaluation of patient's condition, pulse oximetry, ordering and review of radiographic studies, ordering and review of laboratory studies and ordering and performing treatments and interventions us Ines Carreno MD PROCEDURE/MINOR SURGICAL OR DERABLES Final Result * XR CHEST PORTABLE (04/06/2024 4:42 PM PATIENT SAFETY COORDINATOR) Anatomical Region Laterality Modality Chest Radiographic Karmen ging 04/06/2024 5:14 PM PATIENT SAFETY COORDINATOR Impressions 04/06/2024 5:15 PM PATIENT SAFETY COORDINATOR IMPRESSION: 1. Suggestion of reticular opacities in the right lung base that could be seen with atelectasis or pneumonia in the appropriate clinical setting. 2. Prominence of the pulmonary vascular pattern which may be seen with pulmonary vascular congestion for Ordered By: INES CARRENO Interpreted By: Kwabena Caban MD, 04/06/2024 5:14 PM Narrative 04/06/2024 5:15 PM PATIENT SAFETY COORDINATOR [address] [place] [address] Examination: XR CHEST PORTABLE, 04/06/2024 4:42 PM. Technique: Upright AP portable radiograph of the chest Clinical history: Dyspnea Comparison: Chest radiograph 07/07/2022, 04/22/2022 Findings: There are multiple leads overlying the chest. Cerclage wires approximating median sternotomy. Heart size is normal. Prominence of pulmonary vascular pattern. Suggestion of reticular opacities in the right lung base that could be seen with atelectasis or pneumonia. No pleural effusion. No pneumothorax. Procedure Note Kwabena Caban MD - 04/06/[address] [place] [address] Examination: XR CHEST PORTABLE, 04/06/2024 4:42 PM. Technique: Upright AP portable radiograph of the chest Clinical history: Dyspnea Comparison: Chest radiograph 07/07/2022, 04/22/2022 Findings: There are multiple leads overlying the chest. Cerclage wires approximatingmedian sternotomy. Heart size is normal. Prominence of pulmonary vascularpattern. Suggestion of reticular opacities in the right lung base thatcould be seen with atelectasis or pneumonia. No pleural effusion. Nopneumothorax. IMPRESSION: 1. Suggestion of reticular opacities in the right lung base that could beseen with atelectasis or pneumonia in the appropriate clinical setting. 2. Prominence of the pulmonary vascular pattern which may be seen withpulmonary vascular congestion for Ordered By: INES CARRENO Interpreted By: Kwabena Caban MD, 04/06/2024 5:14 PM Ines Carreno MD GENERAL IMAGING Final Resul t * BLOOD CULTURE #1 (04/06/2024 4:29 PM PATIENT SAFETY COORDINATOR) SPEC DESCRIPTION BLOOD 04/06/2024 4:10 PM PATIENT SAFETY COORDINATOR [facility] SPECIAL REQUESTS NO SPECIAL REQUEST 04/06/2024 4:10 PM PATIENT SAFETY COORDINATOR [facility] CULTURE RESULT NO GROWTH 5 DAYS 04/11/2024 12:03 PM PATIENT SAFETY COORDINATOR [facility] BLOOD SPECIMEN OBTAINED FOR BLOOD CULTURE / Unknown 04/06/2024 4:29 PM PATIENT SAFETY COORDINATOR 04/06/2024 4:31 PM PATIENT SAFETY COORDINATOR Ines Carreno MD MICROBIOLOGY - GENERAL ORDE RABLES Final Result Performing Organization Address [facility]/ZIP Co de Phone Number [facility] [address] [place] [id number], * LACTIC ACID W REFLEX (SEPSIS) (04/06/2024 4:22 PM PATIENT SAFETY COORDINATOR) LACTIC ACID VENOUS 0.6 0.4 - 2.0 MMOL/L 04/06/2024 4:58 PM PATIENT SAFETY COORDINATOR [facility] 04/06/2024 4:22 PM PATIENT SAFETY COORDINATOR Ines Carreno MD LABORATORY Final Resul t Performing Organization Address City/[facility]/ZIP Co de Phone Number [facility] [address] [place], [place] [address] [place] [address], * (ABNORMAL) PRO-BRAIN NATRIURETIC PEPTIDE (04/06/2024 4:22 PM PATIENT SAFETY COORDINATOR) PRO-B TYPE NATRIURETIC PEPTIDE 1,402(H) <125 PG/ML 04/06/2024 4:52 PM PATIENT SAFETY COORDINATOR [facility] Comment: CUT POINTS ESTABLISHED BY INTERNATIONAL COLLABORATIVE ON NT PROBNP (ICON) STUDY (2006). AGE INDEPENDENT: <300 PG/ML HAS A 99% NEGATIVE PREDICTIVE VALUE FOR EXCLUDING ACUTE CHF <50 YEARS: >450 PG/ML IS CONSISTENT WITH ACUTE CHF 50-75 YEARS: >900 PG/ML IS CONSISTENT WITH ACUTE CHF >75 YEARS: >1800 PG/ML IS CONSISTENT WITH ACUTE CHF IN PATIENTS WITH RENAL INSUFFICIENCY (GFR <60), >1200 PG/ML YIELDS A DIAGNOSTIC SENSITIVITY AND SPECIFICITY OF 89% AND 72% FOR ACUTE CHF. 04/06/2024 4:22 PM PATIENT SAFETY COORDINATOR Ines Carreno MD LABORATORY Final Resul t [facility] [address] [place] [address], * (ABNORMAL) COMPREHENSIVE METABOLIC PANEL (04/06/2024 4:22 PM PATIENT SAFETY COORDINATOR) SODIUM S/P/B 136 136 - 145 MMOL/L 04/06/2024 4:52 PM PATIENT SAFETY COORDINATOR [facility] POTASSIUM S/P/B 5.0 3.5 - 5.1 MMOL/L 04/06/2024 4:52 PM [facility] CHLORIDE S/P/B 97(L) 98 - 107 MMOL/L 04/06/2024 4:52 PM PATIENT SAFETY COORDINATOR [facility] CO2 36.6(H) 21.0 - 32.0 MMOL/L 04/06/2024 4:52 PM PATIENT SAFETY COORDINATOR [facility] GLUCOSE 104(H) 70 - 99 MG/DL 04/06/2024 4:52 PM PATIENT SAFETY COORDINATOR [facility] Comment: FASTING GLUCOSE 100 TO 125 MG/DL IS CONSISTENT WITH IMPAIRED FASTING GLUCOSE. FASTING GLUCOSE >125 MG/DL IS CONSISTENT WITH DIABETES. RANDOM GLUCOSE >200 MG/DL WITH HYPERGLYCEMIC SYMPTOMS IS CONSISTENT WITH DIABETES. PER ADA GUIDELINES BUN 13 6 - 24 MG/DL 04/06/2024 4:52 PM [facility] CREATININE S/P/B 0.66 0.55 - 1.02 MG/DL 04/06/2024 4:52 PM [facility] CALCIUM S/P/B 8.6 8.4 - 10.5 MG/DL 04/06/2024 4:52 PM [facility] BILIRUBIN TOTAL S/P/B 0.5 0.2 - 1.0 MG/DL 04/06/2024 4:52 PM [facility] Comment: THIS ASSAY IS NOT RECOMMENDED FOR PATIENTS UNDERGOING TREATMENT WITH ELTROMBOPAG DUE TO THE POTENTIAL FOR FALSELY ELEVATED RESULTS. ALKALINE PHOSPHATASE S/P/B 116 50 - 130 U/L 04/06/2024 4:52 PM [facility] AST 19 15 - 37 U/L 04/06/2024 4:52 PM [facility] ALT 28 14 - 59 U/L 04/06/2024 4:52 PM [facility] TOTAL PROTEIN S/P/B 6.8 6.4 - 8.2 G/DL 04/06/2024 4:52 PM [facility] ALBUMIN S/P/B 3.4 3.4 - 5.0 G/DL 04/06/2024 4:52 PM [facility] ANION GAP 2.4(L) 5.0 - 15.0 MMOL/L 04/06/2024 4:52 PM [facility] OSMOLALITY (CALC) 282 MOSM/KG 024 4:52 PM [facility] Comment:REFERENCE RANGE NOT ESTABLISHED GFR ESTIMATE >90 >89 ML/MIN/1. 73 M2 04/06/2024 4:52 PM [facility] GFR NOTES GFR REFERENCE S: 04/06/2024 4:52 PM [facility] Comment: THE ESTIMATED GFR IS CALCULATED USING THE 2020 CKD-EPI EQUATION. THE FOLLOWING CATEGORIES FOR GRADING RENAL FUNCTION ARE RECOMMENDED BY THE INTERNATIONAL SOCIETY OF NEPHROLOGY (KDIGO 2012 CLINICAL PRACTICE GUIDELINE). G1,NORMAL OR HIGH: >89 ml/min/1.73 m2 G2,MILDLY DECREASED: 60-89 ml/min/1.73 m2 G3A,MILDLY TO MODERATELY DECREASED: 45-59 ml/min/1.73 m2 G3B,MODERATELY TO SEVERELY DECREASED: 30-44 ml/min/1.73 m2 G4,SEVERELY DECREASED: 15-29 ml/min/1.73 m2 G5,KIDNEY FAILURE: <15 ml/min/1.73 m2 04/06/2024 4:22 PM PATIENT SAFETY COORDINATOR us Ines Carreno MD LABORATORY Final Resul t Performing Organization Address City/[facility] Co de Phone Number [facility] [address] [place] [address], * TROPONIN, QUANT (04/06/2024 4:22 PM PATIENT SAFETY COORDINATOR) TROPONIN I HIGH SENSITIVITY 8 0 - 51 ng/L 04/06/2024 4:52 PM PATIENT SAFETY COORDINATOR [facility] 04/06/2024 4:22 PM PATIENT SAFETY COORDINATOR us Ines Carreno MD LABORATORY Final Resul t Performing Organization Address [facility] Co de Phone Number [facility] [address] [place] [address], * MAGNESIUM (04/06/2024 4:22 PM PATIENT SAFETY COORDINATOR) MAGNESIUM 2.0 1.8 - 2.4 MG/DL 04/06/2024 4:52 PM PATIENT SAFETY COORDINATOR [facility] 04/06/2024 4:22 PM PATIENT SAFETY COORDINATOR us Ines Carreno MD LABORATORY Final Resul t Performing Organization Address [facility] Co de Phone Number [facility] [address] [place] [id number], * CORONAVIRUS (COVID-19) ANTIGEN (04/06/2024 4:10 PM PATIENT SAFETY COORDINATOR) CORONAVIRUS ANTIGEN IA NEGATIVE NEGATIVE 04/06/2024 4:38 PM PATIENT SAFETY COORDINATOR [facility] Comment: NEGATIVE RESULTS DO NOT RULE OUT SARS-COV-2 INFECTION AND SHOULD NOT BE USED THE SOLE BASIS FOR TREATMENT OR PATIENT MANAGEMENT DECISIONS, INCLUDING INFECTION CONTROL DECISIONS. NEGATIVE RESULTS SHOULD BE CONSIDERED IN THE CONTEXT OF A PATIENT'S RECENT EXPOSURES, HISTORY AND THE PRESENCE OF CLINICAL SIGNS AND SYMPTOMS CONSISTENT WITH COVID 19. THIS TEST HAS BEEN AUTHORIZED BY THE FDA UNDER AN EMERGENCY USE AUTHORIZATION (EUA) FOR USE BY AUTHORIZED LABORATORIES. SPECIMEN TYPE NASAL 04/06/2024 4:13 PM PATIENT SAFETY COORDINATOR [facility] NASAL NASAL STRUCTURE / Unknown 04/06/2024 4:10 PM PATIENT SAFETY COORDINATOR us Ines Carreno MD MICROBIOLOGY - GENERAL ORDE PANCHO Final Result Performing Organization Address [facility] Co de Phone Number [facility] [address] [place], [place] [address] [place] [address], * INFLUENZA A & B (04/06/2024 4:10 PM PATIENT SAFETY COORDINATOR) SPECIMEN TYPE (INFLUENZA) NASAL 04/06/2024 4:13 PM PATIENT SAFETY COORDINATOR [facility] INFLUENZA A NEGATIVE NEGATIVE 04/06/2024 4:38 PM PATIENT SAFETY COORDINATOR [facility] INFLUENZA B NEGATIVE NEGATIVE 04/06/2024 4:38 PM PATIENT SAFETY COORDINATOR [facility] Comment: A NEGATIVE RESULT DOES NOT EXCLUDE INFLUENZA VIRUS INFECTION. IF INFLUENZA IS CIRCULATING IN YOUR COMMUNITY, A DIAGNOSIS OF INFLUENZA SHOULD BE CONSIDERED BASED ON A PATIENT'S CLINICAL PRESENTATION AND EMPIRIC ANTIVIRAL TREATMENT SHOULD BE CONSIDERED IF INDICATED. NASAL STRUCTURE / Unknown 04/06/2024 4:10 PM PATIENT SAFETY COORDINATOR us Ines Carreno MD MICROBIOLOGY - GENERAL ORDAlex DELEON Final Result Performing Organization Address [facility]/ZIP Co de Phone Number [facility] [address] [place], [place] [address] [place] [address], * ECG 12 lead (04/06/2024 3:57 PM PATIENT SAFETY COORDINATOR) 04/06/2024 3:57 PM PATIENT SAFETY COORDINATOR Narrative [facility] - 04/07/2024 3:59 AM PATIENT SAFETY COORDINATOR [address] [place] [address] Test Date: 2024-04-06 Pat Name: CARYL ADAM Department: 3 Room: 306 Gender: Female Guest Experience Manager: : [id number] Requested By: INES CARRENO Order Number: [id number] Reading MD: Dennys Palumbo Measurements Intervals [place] Rate: 77 P: LA: 0 QRS: 129 QRSD: 93 T: 78 QT: 361 QTc: 409 Interpretive Statements ATRIAL FIBRILLATION POSSIBLE RIGHT VENTRICULAR HYPERTROPHY SEPTAL MYOCARDIAL INFARCTION , PROBABLY OLD ENT SAFETY COORDINATOR Procedure Note Dennys Palumbo MD - 04/07/[address] [place] [address] Test Date: 2024-04-06 Pat Name: CARYL ADAM Department: 3 Room: 306 Gender: Female Guest Experience Manager: : [id number] Requested By: INES CARRENO Order Number: [id number] Reading MD: Dennys Palumbo Measurements Intervals [place] Rate: 77 P: [place]: 0 QRS: 129 QRSD: 93 T: 78 QT: 361 QTc: 409 Interpretive Statements ATRIAL FIBRILLATION POSSIBLE RIGHT VENTRICULAR HYPERTROPHY SEPTAL MYOCARDIAL INFARCTION , PROBABLY OLD ENT SAFETY COORDINATOR us Ines Carreno MD ECG ORDERABLES Final Resul t [facility] from Last 3 Months Insurance [facility] Advance Directives * Full Code (Latest Code Status on File) Date Activated Date Inactivated Comments 04/06/2024 7:37 PM 04/07/2024 2:50 PM * Full Code Date Activated Date Inactivated Comments 07/08/2022 8:10 AM 07/08/2022 1:14 PM * Full Code Date Activated Date Inactivated Comments 08/04/2020 6:47 AM 08/05/2020 2:18 PM Care Teams Independent Sales Representative Relationship Specialty Start Date End Date Xavi Kaur MD [address] [place] [address] PCP - General INTERNAL MEDICINE 03/08/16 Horacio Martinez PA-C [address] [place] [phone] Electrophysiology 03/08/16 Kyle Brown MD [address] [place] [address] EP Visual Display Manager CLINICAL CARDIAC ELECTROPHYSIOLOGY 03/08/16 Bertha Sanchez APRN, WALL TO WALL CARPET INSTALLER-C [address] [place] [phone] NURSE PRACTITIONER 11/10/20
--- OUTSIDE RECORDS SUMMARY | 2024-07-02 12:14 | XMS_ITS | Encounter Summary ---
Author Organization [facility] Address [address] [place] [address] Care Team Providers Care Bicycle Assembler Name Role Phone Xavi Kaur MD Primary Care Provider [phone] Horacio Martinez PA-C Unavailable [phone] Kyle Brown MD Unavailable Unavailable Bertha Sanchez APRN SUPPORT ASSISTANT-C Unavailable [phone] Encounter Details Date Type Department Care Team (Late st Contact Info) Description 08/07/2020 Hospital Follow-up Call [facility] Unit [address] [place] [address] Laxmi Rueda, RN Social History Tobacco Use Types Packs/Day Years Used Date Smoking Tobacco: Every Day Cigarettes 1 40 Smokeless Tobacco: Never Alcohol Use Standard Drinks/Week Comments Yes 0 (1 standard drink = 0.6 oz pur e alcohol) Socially Comments Unknown Sex and Gender Information Value Date Recorded Sex Assigned at Not on file Legal Sex Female 10:45 PM CDT Gender Identity Not on file Sexual Orientation Not on file 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 No / Unsure 08/04/2020 1:20 AM CDT documented as of this encounter Functional Status * RETIRED Are you deaf or do you have serious difficulty hearing Answer Date of Assessment Author Status No 08/04/2020 11:34 AM CDT Acti ve * RETIRED Are you blind or do you have serious difficulty seeing, even when wearing glasses? Answer Date of Assessment Author Status No 08/04/2020 11:38 AM CDT Acti ve * Do you have serious difficulty walking or climbing stairs? Answer Date of Assessment Author Status No 08/04/2020 11:38 AM CDT Latanya Bailey RN Active * Do you have difficulty dressing or bathing? Answer Date of Assessment Author Status No 08/04/2020 11:38 AM CDT Latanya Bailey RN Active * Because of a physical, mental, or emotional condition, do you have difficulty doing errands alone such as visiting a doctor's office or shopping? Answer Date of Assessment Author Status No 08/04/2020 11:38 AM [place] Latanya Bailey RN Active documented as of this encounter Mental Status * Because of a physical, mental, or emotional condition, do you have serious difficulty concentrating, remembering, or making decisions? Answer Entry Date Author Status No 08/04/2020 11:38 AM [place] Latanya Bailey RN Active documented in this encounter Plan of Treatment Upcoming Encounters Date Type Department Care Team (Late st Contact Info) Description 08/19/2024 1:00 PM CDT Office Visit [facility] [place] [address] Antoine Topete MD [address] [place] [address] documented as of this encounter Visit Diagnoses Not on filedocumented in this encounter Additional Health Concerns Infection Onset Date Last Indicated Resolved Time COVID-19 Rule Out 04/22/2022 04/22/2022 04/22/2022 2:01 PM ENTEROSTOMAL THERAPY NURSE COVID-19 Confirmed 04/22/2022 04/22/2022 12:32 AM ENTEROSTOMAL THERAPY NURSE COVID-19 Rule Out 07/07/2022 07/08/2022 07/08/2022 12:34 AM ENTEROSTOMAL THERAPY NURSE COVID-19 Rule Out 04/06/2024 04/06/2024 04/06/2024 4:38 PM ENTEROSTOMAL THERAPY NURSE documented as of this encounter Care Teams Bicycle Assembler Relationship Specialty Start Date End Date Xavi Kaur MD [address] [place] [phone] PCP - General INTERNAL MEDICINE 03/08/16 Horacio Martinez PA-C [address] [place] [address] Electrophysiology 03/08/16 Kyle Brown MD [address] [place] [address] EP Votator Machine Operator CLINICAL CARDIAC ELECTROPHYSIOLOGY 03/08/16 Bertha Sanchez APRN, SUPPORT ASSISTANT-C [address] [place] [address] NURSE PRACTITIONER 11/10/20 documented as of this encounter
--- OUTSIDE RECORDS SUMMARY | 2024-07-02 12:14 | XMS_ITS ---
Author Organization [facility] Address [address] [facility] [address] [place] [address] Care Team Providers Care Military Police Officer Name Role Phone Vincent DELANEY, Xavi Primary Care Provider Unavaila Nick Reyes Unavailable [phone] Allergies Allergen (clinical drug ingredient) Drug/Non Drug Allergy documented on EMR Reaction Allergy Type Onset Date Status ROBITUSSIN (uncoded) Unknown Allergy 4 Active amoxicillin Amoxicillin Unknown Drug Allergy 07/26/2023 Ac tive Results Component Value Reference Range Notes UDT Reviewed date:05/01/2024 11:34:54 AM Interpretation: Performing Lab: Notes/Report: THC N 0 - 50 ng/ml Cocaine N 0 - 300 ng/ml Amphetamine N 0 - 1000 ng/ml Buprenorphine (BUP) N 0 - 10 ng/ml Secobarbital (Bar) N 0 - 300 ng/ml Oxazepam (BZO) P 0 - 300 ng/ml 0-fsqmnuxrpt-0,1-vqsqbsng-0,3-diphenylpyrrolidine (ROBIN P) N 0 - 300 ng/ml Methamphetamine (MET) N 0 - 1000 ng/ml Methylenedioxymethamphetamine (MDMA) N 0 - 500 ng/ml Morphine (MOP 300/[id number]) N 0 - 300 ng/ml Methadone (MTD) N 0 - 300 ng/ml Phencyclidine (PCP) N 0 - 25 ng/ml Propoxyphene (PPX) N 0 - 300 ng/ml Nortriptyline (TCA) N 0 - 1000 ng/ml Oxycodone N 0 - 300 ng/ml REASON FOR VISIT UDT Visit, UDT done, Follow up, phq less than 5, PSYCHOTHERAPY W/PATIENT W/E M, PSYCHOTHERAPY W/PATIENT W/E M Medications Medication SIG (Take, Route, Frequency, Duration) Notes Start Date End Date Status Brimonidine Tartrate-Timolol 0.2-0.5 % INSTILL 1 DROP INTO EACH EYE TWICE DAILY Ophthalmic for 20 Days Not-Takin g ALPRAZolam 0.25 MG 1 tablet Orally once a day for 30 days 04/23/2024 Active ARIPiprazole 2 MG 1 tablet Oral Once a day for 90 days Active Brimonidine Tartrate-Timolol 0.2-0.5 % INSTILL 1 DROP INTO EACH EYE TWICE DAILY Ophthalmic for 20 Days Not-Takin g ALPRAZolam 0.25 MG 1 tablet every day a nd half tablet once a day as needed Oral see sign for 90 days 05/01/2024 Active Tiotropium Elbert Monohydrate 18 MCG INHALE THE CONTENTS OF 1 CAPS USING 2 INHALATIONS BY INHALATION ROUTE ONCE DAILY VIA HANDIHALER Inhalation for 30 Days Not-Takin g Tiotropium Elbert Monohydrate 18 MCG INHALE THE CONTENTS OF 1 CAPS USING 2 INHALATIONS BY INHALATION ROUTE ONCE DAILY VIA HANDIHALER Inhalation for 30 Days Not-Takin g Social History Sex Assigned At : Social History Observation Description Sex Assigned At Female Section Notes: Do not smoke. Nicotine and other chemicals in cigarettes and cigars can cause lung damage. Ask your healthcare provider for information if you currently smoke and need help to quit. E-cigarettes or smokeless tobacco still contain nicotine. Talk to your healthcare provider before you use these products. Education on decrease to stopping nicotine products and stop smoking hotline given Vital Signs Blood pressure systolic 96 mm Hg 05/01/20 24 Blood pressure diastolic 63 mm Hg 024 Heart Rate 101 /min 05/01/2024 Height 67.99 in 05/01/2024 Height-cm 172.69 cm 05/01/2024 Encounters Encounter Location Date Provider Diagnosis [facility] [address] [facility] [address] [place] [address] 05/01/2024 Nick Manjarrez Bipolar disorder, in full remission, most recent episode depressed F31.76 and Generalized anxiety disorder F41.1 Assessments Encounter Date Diagnosis (ICD Code) Assessment Notes Treatment Notes Treatment Clinical Notes Section Notes 05/01/2024 Bipolar disorder, in full remission, most [...] and financial accounts for any suspicious activity. 05/01/2024 Generalized anxiety disorder (ICD-10 - F41.1) [...] and financial accounts for any suspicious activity. Plan Of Treatment Medication Medication Name Sig Start Date Stop Date Notes ARIPiprazole 2 MG 1 tablet Oral Once a day for 90 days ALPRAZolam 0.25 MG 1 tablet every day a nd half tablet once a day as needed Oral see sign for 90 days 05/01/2024 Next Appt Details Provider Name:Celina Danielson , 07/24/2024 01:00:00 PM, [address], [address], [address], Provider Name:Nick Manjarrez , 07/24/2024 02:15:00 PM, [address], [facility] [address], [place], [address], Provider Name:Celina Danielson , 08/21/2024 01:00:00 PM, [facility] [address], [address], [address], Provider Name:Celina Danielson , 09/18/2024 01:00:00 PM, [facility], [address], [address], Progress Notes * BIPIN ADAMDOB:1960 (63 yo F)Acc No.[id number]:05/01/2024 Patient: Bhanu ELARCADIO BIPIN Provider: Varsha MANJARREZ MD :1960 A ge:63 Y S ex:Female Date:05/01/2024 Address:[address] [place], [place] [phone] Pcp:Xavi Kaur MD Subjective: * Chief Complaints: * U DT VisitUDT doneFollow upPhq less than 5PSYCHOTHERAPY W/PATIENT W/E MPSYCHOTHERAPY W/PATIENT W/E M * HPI: H istory of Presenting Problem: The note is transcribed using speech recognition software. It is a reflection of a visit with the patient. It might have some inaccuracy, including medication names and transcribing errors, though efforts have been made to correct them. Chief Complaint: Ongoing distress related to identity theft and betrayal by a friend The patient reports experiencing significant distress following an incident involving her best friend, whom she suspects of involvement in a scam leading to identity theft and financial loss. The patient has been attending therapy sessions with a therapist named Celina, who has recommended monthly appointments. Emotional State: The patient is struggling with feelings of betrayal and anger. She reports: - Restless nights - Desire to act violently towards her former friend (not acted upon) - Difficulty coping with the situation - Trust issues, particularly after this betrayal Financial Situation: - Received a $25,000 check from the IRS, believed to be fraudulently obtained - Returned the check with assistance from her taxman and son - Awaiting resolution from the IRS - Has made a police report regarding identity theft - Has taken steps to secure accounts and report fraud - Has managed to reduce debt significantly Home Security: The patient has noticed items missing from her home, which she attributes to her former friend. Medication Concerns: The patient inquires about potential changes to her Xanax and aripiprazole prescriptions. She reports taking more than the prescribed dose of Xanax due to increased stress. Work Environment: - Difficult work environment with numerous firings and resignations - Concerns about job security - Recently took time off for suspected pneumonia - Experienced difficulty obtaining PTO Mental Health: - Previously experienced nightmares about her former friend, which have since subsided - Expresses frustration and a desire for retribution - Struggling to trust people following the betrayal The patient is actively seeking ways to cope with the situation, stating, I'm trying to find a way to deal with it and shut it off. . Pt was seen today and Urine drug screen was done. D epression screening: PHQ-9 L ittle interest or pleasure in doing things N ot at all, F eeling down, depressed, or hopeless S everal days, T rouble falling or staying asleep, or sleeping too much S everal days, F eeling tired or having little energy S everal days, P oor appetite or overeating N ot [...] N ot at all, T otal Score 3 , I nterpretation M inimal Depression. I ntervention D epression Screening Findings?Positve, F ollow-Up for Depression M ental health treatment assessment, Patient follow-up to return when and if necessary, S uicide Risk Assessment Performed , A dditional Evaluation for Depression P sychiatric interview and evaluation, N gardenia of the standardized tool used for adult depression screening: P atient Health Questionnaire (PHQ-9). P sychotherapy with Med eval: Therapy with Med eval P sychotherapy with Medication management Y es, P sychotherapy done Time Spent Minute 1 6 Min, T ype of therapy done S upportive Therapy. * Medical History: * Surgical History: H eart surgery 07/27/1986Cataract surgery (17261) 07/28/1986 * Hospitalization/Major Diagno stic Procedure: P NEUMONIA 04/01/24 * Social History: M igrated Social History: M igrated Social History: Alcohol Intake: Occasional 03/28/2018,Tobacco Years: Current every day smoker 11/23/2022. D o not smoke. Nicotine and other chemicals in cigarettes and cigars can cause lung damage. Ask your healthcare provider for information if you currently smoke and need help to quit. E-cigarettes or smokeless tobacco still contain nicotine. Talk to your healthcare provider before you use these products. Education on decrease to stopping nicotine products and stop smoking hotline given. * Medications: T akingARIPiprazole 2 MG Tablet 1 tablet Oral Once a day ALPRAZolam 0.25 MG Tablet 1 tablet Orally once a day Taking ARIPiprazole 2 MG Tablet 1 tablet Oral Once a day Taking ALPRAZolam 0.25 MG Tablet 1 tablet Orally once a day Not- TakingBrimonidine Tartrate-Timolol 0.2-0.5 % Solution INSTILL 1 DROP INTO EACH EYE TWICE DAILY Ophthalmic Brimonidine Tartrate-Timolol 0.2-0.5 % Solution INSTILL 1 DROP INTO EACH EYE TWICE DAILY Ophthalmic Tiotropium Elbert Monohydrate 18 MCG Capsule INHALE THE CONTENTS OF 1 CAPS USING 2 INHALATIONS BY INHALATION ROUTE ONCE DAILY VIA HANDIHALER Inhalation Tiotropium Elbert Monohydrate 18 MCG Capsule INHALE THE CONTENTS OF 1 CAPS USING 2 INHALATIONS BY INHALATION ROUTE ONCE DAILY VIA HANDIHALER Inhalation Not-Taking Brimonidine Tartrate-Timolol 0.2-0.5 % Solution INSTILL 1 DROP INTO EACH EYE TWICE DAILY Ophthalmic Not-Taking Brimonidine Tartrate-Timolol 0.2-0.5 % Solution INSTILL 1 DROP INTO EACH EYE TWICE DAILY Ophthalmic Not-Taking Tiotropium Elbert Monohydrate 18 MCG Capsule INHALE THE CONTENTS OF 1 CAPS USING 2 INHALATIONS BY INHALATION ROUTE ONCE DAILY VIA HANDIHALER Inhalation Not-Taking Tiotropium Elbert Monohydrate 18 MCG Capsule INHALE THE CONTENTS OF 1 CAPS USING 2 INHALATIONS BY INHALATION ROUTE ONCE DAILY VIA HANDIHALER Inhalation DiscontinuedALPRAZolam 0.25 MG Tablet 1 tablet Oral once a day Medication List reviewed and reconciled with the patientDiscontinued ALPRAZolam 0.25 MG Tablet 1 tablet Oral once a day Medication List reviewed and reconciled with the patient * Allergies: R OBITUSSIN: Allergy - Onset Date 07/26/2023moxicillin: Allergy - Onset Date 07/26/2023no[Allergies Verified] Objective: * Vitals: B P:96/63mm Hg, HR:101/min, Ht: 67.99 in, Ht-cm: 172.69 cm. * Examination: G eneral Examination: M ental Status Examination: Patient exhibits signs of distress related to recent events involving identity theft and betrayal by a close friend. Reports difficulty managing anger and expresses non-violent aggressive thoughts. Describes significant stress, restless nights, and ongoing trust issues. Emotional state appears affected by recent personal and financial betrayals. Patient reports experiencing nightmares about the friend who betrayed them, though these have decreased. Shows signs of anxiety and stress related to work situation, including fear of job loss. Vital Signs: please review note. Assessment: * Assessment: 1. B ipolar disorder, in full remission, most recent episode depressed - F31.76 (Primary) ? 2 . G eneralized anxiety disorder - F41.1 Adjustment Disorder with Mix ed Anxiety and Depressed Mood - Assessment: Patient [...] and financial accounts for any suspicious activity. Plan: * Treatment: 2. G eneralized anxiety disorder Refill ALPRAZolam Tablet, 0.25 MG, 1 tablet every day and half tablet once a day as needed, Oral, see sign, 90 days, 135, Refills 0. * Labs: * L ab: UDT (Collection Date & Time - 05/01/2024) Value Reference Range T HC N 0 - 50 ng/ml * C ocaine N 0 - 300 ng/ml * A mphetamine N 0 - 1000 ng/ml * B uprenorphine (BUP) N 0 - 10 ng/ml * S ecobarbital (Bar) N 0 - 300 ng/ml * O xazepam (BZO) P 0 - 300 ng/ml * 2 -ethylidene-1,4-gnoweibb-1,3-diphenylpyrrolidine (EDDP) N 0 - 300 ng/ml * M ethamphetamine (MET) N 0 - 1000 ng/ml * M ethylenedioxymethamphetamine (MDMA) N 0 - 500 ng/ml * M orphine (MOP 300/[id number]) N 0 - 300 ng/ml * M ethadone (MTD) N 0 - 300 ng/ml * P hencyclidine (PCP) N 0 - 25 ng/ml * P ropoxyphene (PPX) N 0 - 300 ng/ml * N ortriptyline (TCA) N 0 - 1000 ng/ml * O xycodone N 0 - 300 ng/ml * Procedure Codes: 9 0833 PSYCHOTHERAPY W/PATIENT W/E&M SRVCS 30 [id number] DRUG TST PRSMV READ INSTRMNT ASSTD DIR OPT [id number] BEHAV ASSMT W/SCORE & DOCD/STAND INSTRUMENT * Billing Information: * Visit Code: 74276 OFFICE OUTPATIENT VISIT 25 MINUTES DETAILED HISTORY AND EXAM/MODERATE MEDICAL DECISION MAKING. * Procedure Codes: 33846 PSYCHOTHERAPY W/PATIENT W/E&M SRVCS 30 MIN. 03892 DRUG TST PRSMV READ INSTRMNT ASSTD DIR OPT OBS. 55856 BEHAV ASSMT W/SCORE & DOCD/STAND INSTRUMENT. * PULLER Sign off status: Completed true * Provider: Varsha MANJARREZ MD Date: 1 07/02/2023 Generated for Dori rich/Lavonne/Bashir on: 0 07/02/2024 12:14 PM CLOD PULLER History and Physical Notes * HPI (History of Present Illness) Category Sub-Category Detail Notes Category Not es History of Presenting Problem Pt was seen today and Urine drug screen was done Depression screening PHQ-9 Little inte rest or pleasure in doing things: Not at all Feeling down, depressed, or hopeless: Se veral days Trouble falling or staying asleep, or sl eeping too much: Several days Feeling tired or having little energy: S everal days Poor appetite or overeating: Not at all [...] some way: Not at all Total Score: 3 Interpretation: Minimal Depression Intervention Depression Screening Findings: P ositve Follow-Up for Depression: [facility] treatment assessment, Patient follow-up to return when and if necessary Suicide Risk Assessment Performed: Additional Evaluation for De pression: Psychiatric interview and evaluation Name of the standardized too l used for adult depression screening:: Patient Health Questionnaire (PHQ-9) Psychotherapy with Med eval Therapy with Med bruna l Psychotherapy with Medication management: Yes Psychotherapy done Time Spent Minute: 16 Min Type of therapy done: Supportive Therapy Examination Category Sub-Category Detail Notes Category Not es General Examination Mental Status Examination: Patient exhibits signs of distress related to recent events involving identity theft and betrayal by a close friend. Reports difficulty managing anger and expresses non-violent aggressive thoughts. Describes significant stress, restless nights, and ongoing trust issues. Emotional state appears affected by recent personal and financial betrayals. Patient reports experiencing nightmares about the friend who betrayed them, though these have decreased. Shows signs of anxiety and stress related to work situation, including fear of job loss. Vital Signs: please review note
--- OUTSIDE RECORDS SUMMARY | 2024-07-02 12:14 | XMS_ITS | Encounter Summary ---
Author Organization [facility] Address [facility] [place] [address] Care Team Providers Care Tool Pusher Name Role Phone Xavi Kaur MD Primary Care Provider [phone] Horacio MartinezC Unavailable [phone] Kyle Brown MD Unavailable Unavailable Bertha Sanchez APRN [employer] Unavailable [phone] Encounter Details Date Type Department Care Team (Late st Contact Info) Description 10/17/2015 Abstract [facility] [address] [place] [phone] Kyle Brown MD Social History Tobacco Use Types Packs/Day Years Used Date Smoking Tobacco: Smoker, Current Status Unknown Alcohol Use Standard Drinks/Week Comments Yes 0 (1 standard drink = 0.6 oz pur e alcohol) Socially Comments Unknown Sex and Gender Information Value Date Recorded Sex Assigned at Not on file Legal Sex Female 10:45 PM CDT Gender Identity Not on file Sexual Orientation Not on file 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 Not on file Not on file documented as of this encounter Plan of Treatment Upcoming Encounters Date Type Department Care Team (Late Contact Info) Description 08/19/2024 1:00 PM CDT Office Visit [facility] [place] [phone] Antoine Topete MD [address] [place] [address] documented as of this encounter Visit Diagnoses Not on filedocumented in this encounter Additional Health Concerns Infection Onset Date Last Indicated Resolved Time COVID-19 Rule Out 08/04/2020 08/04/2020 08/04/2020 3:45 AM CDT COVID-19 Rule Out 04/22/2022 04/22/2022 04/22/2022 2:01 PM ONCOLOGY NAVIGATOR COVID-19 Confirmed 04/22/2022 04/22/2022 12:32 AM ONCOLOGY NAVIGATOR COVID-19 Rule Out 07/07/2022 07/08/2022 07/08/2022 12:34 AM ONCOLOGY NAVIGATOR COVID-19 Rule Out 04/06/2024 04/06/2024 04/06/2024 4:38 PM ONCOLOGY NAVIGATOR documented as of this encounter Care Teams Tool Pusher Relationship Specialty Start Date End Date Xavi Kaur MD [address] [place] [address] PCP - General INTERNAL MEDICINE 03/08/16 Horacio Martinez PA-C [address] [place] [address] Electrophysiology 03/08/16 Kyle Brown MD [address] [place] [address] EP [employer] Repairer CLINICAL CARDIAC ELECTROPHYSIOLOGY 03/08/16 Bertha Sanchez APRN, [employer] [address] [place] [phone] NURSE PRACTITIONER 11/10/20 documented as of this encounter
== END 2024-07-02 12:08 | disposition home or self-care (01) ==
LOC: CHSIMG 12:11
PROVIDERS: PCP Internal Medicine; Visit Provider Internal Medicine
DX: Z12.31 Encounter for screening mammogram for malignant neoplasm of breast (principal)
CPT/HCPCS: 77063; 77067